=== PATIENT | female | born 2000 | race Hispanic/Latino ===

== ENCOUNTER → 2022-03-03 | Day surgery (SDC) | payer OTHER ==
[~2022-03-03] MED LIST: Acetaminophen 500 MG TAB ONE; Iron Sucrose Complex 500 MG in Sodium Chloride 0.9% 250 ML 250 ML IVPB SCH
== END ==
LOC: CSHSDC 08:11
PROVIDERS: ATTEND Family Medicine
DX: O99.019 Anemia complicating pregnancy, unspecified trimester (principal); D64.9 Anemia, unspecified
CPT/HCPCS: J1756; J7050

== ENCOUNTER 2022-03-28 00:19 | Day surgery (SDC) | payer OTHER ==
[2022-03-28 01:01] VITALS: BMI 32.3
[2022-03-28 01:41] LABS: SARS-CoV-2 NAA Rapid Test Not Detected (NotDetected)
[2022-03-28] MEDS ORDERED: hydrALAZINE 20 MG/ML VIAL SLOW IVP PRN (02:12)
[2022-03-28] MEDS ORDERED: Ondansetron ODT 4 MG TAB PO PRN (02:19)
== END 2022-03-28 03:42 | disposition home or self-care (01) ==
LOC: CSHLD/OP 00:19
PROVIDERS: ATTEND Obstetrics & Gynecology
DX: O21.8 Other vomiting complicating pregnancy (principal); O99.013 Anemia complicating pregnancy, third trimester; D64.9 Anemia, unspecified; Z3A.34 34 weeks gestation of pregnancy; Z79.899 Other long term (current) drug therapy; Z20.822 Contact with and (suspected) exposure to COVID-19
CPT/HCPCS: 99283; Q0162; U0002

== ENCOUNTER 2022-04-17 11:52 | Day surgery (SDC) | payer OTHER ==
[2022-04-17 12:30] VITALS: BMI 32.3
[2022-04-17 14:14] LABS: Bilirubin Neg (Negative); Blood, Urine 10 (Negative); Clarity Clear (Clear); Glucose, Urine (Dipstick) Normal (Negative); Ketone, Urine Negative (Negative); Leukocyte 25 (Negative); Nitrite Negative (Negative); Protein, Urine (Dipstick) 15 mg/dl (Neg-Trace); Specific Gravity, Urine 1.015 (1.005-1.030)
[2022-04-17 14:18] LABS: Urine Culture Reflex No No
[2022-04-17 14:47] LABS: Bacteria/HPF 2+ HPF (None Seen); Transitional Epithelial 0-3 HPF (None Seen)
[2022-04-17] MEDS ORDERED: Nitrofurantoin Monohyd/M-Cryst 100 MG CAP PO SCH (21:00)
== END 2022-04-17 15:15 | disposition home health service (06) ==
LOC: CSHLD/OP 11:52
PROVIDERS: ATTEND Obstetrics & Gynecology
DX: O23.43 Unspecified infection of urinary tract in pregnancy, third trimester (principal); N39.0 Urinary tract infection, site not specified; O47.03 False labor before 37 completed weeks of gestation, third trimester; Z3A.36 36 weeks gestation of pregnancy; Z87.440 Personal history of urinary (tract) infections; Z79.2 Long term (current) use of antibiotics; Z79.899 Other long term (current) drug therapy
CPT/HCPCS: 81001; 99283

== ENCOUNTER 2022-04-24 00:04 | Day surgery (SDC) | payer OTHER ==
[2022-04-24 00:29] VITALS: BMI 33.6
[2022-04-24] MEDS ORDERED: Acetaminophen 500 MG TAB PO SCH (01:30)
== END 2022-04-24 02:22 | disposition home or self-care (01) ==
LOC: CSHER/OP 00:04 → CSHLD/OP 02:22
PROVIDERS: ATTEND Family Medicine
DX: O26.893 Other specified pregnancy related conditions, third trimester (principal); M54.50 Low back pain, unspecified; R10.2 Pelvic and perineal pain; Z3A.37 37 weeks gestation of pregnancy; Z79.899 Other long term (current) drug therapy
CPT/HCPCS: 99283

== ENCOUNTER 2022-04-30 04:06 | Inpatient (IN) | payer OTHER ==
[2022-04-30] MEDS ORDERED: hydrALAZINE 20 MG/ML VIAL SLOW IVP PRN ×3 (06:29→15:55)
[2022-04-30] MEDS ORDERED: Bupivacaine/Epinephrine 0.25% 30 ML VIAL ONE (07:00)
[2022-04-30] MEDS ORDERED: ePHEDrine Sulfate 50 MG/10 ML VIAL ONE (07:00)
[2022-04-30] MEDS ORDERED: Ibuprofen 800 MG TAB PO PRN (07:17)
[2022-04-30] MEDS ORDERED: Docusate 100 MG CAP PO PRN (07:17)
[2022-04-30] MEDS ORDERED: Promethazine HCl 25 MG/ML VIAL IM PRN ×2 (07:17→09:29)
[2022-04-30] MEDS ORDERED: Acetaminophen 500 MG TAB PO PRN (07:17)
[2022-04-30] MEDS ORDERED: Lidocaine 1% (PF) 30 ML VIAL SC PRN (07:17)
[2022-04-30] MEDS ORDERED: Ondansetron PF 4 MG/2 ML Vial IVP PRN ×3 (07:17→15:55)
[2022-04-30] MEDS ORDERED: NS w/ Oxytocin 30 units 500 ML IV SCH ×3 (07:30→15:55)
[2022-04-30] MEDS ORDERED: Butorphanol Tartrate 1 MG/ML VIAL ONE (08:00)
[2022-04-30 08:05] LABS: Hemoglobin 13.2 g/dL (12.0-15.5); Mean Corpuscular HGB CONC 33.6 g/dL (32.0-36.0); Mean Corpuscular Hemoglobin 27.6 pg (27.0-33.0); Mean Platelet Volume 11.3 fl (7.4-10.4); Platelet Count 279 10x3/uL (150-450); RBC Distribution Width 17.8 % (11.5-14.5); Red Blood Cell (RBC) Count 4.79 10x6/uL (3.90-5.03); White Blood Cell (WBC) Count 22.8 10x3/uL (3.5-10.5)
[2022-04-30] MEDS: Lactated Ringer's 1,000 ML IV SCH ×3 (08:07→13:44)
[2022-04-30] MEDS ORDERED: Fentanyl 2 mcg/Bup 0.1% Cadd 100 ML ONE (08:15)
[2022-04-30 08:51] LABS: Syphilis Antibody Nonreactive (Nonreactive); Syphilis Antibody Index 0.02 S/CO (<1.00 Non-Reactive)
[2022-04-30 08:53] LABS: HBSAg Index 0.15 S/CO (0-0.99); Hep B Surf Ag Non-Reactive S/CO (NonReactive)
[2022-04-30] MEDS ORDERED: ePHEDrine Sulfate 50 MG/10 ML VIAL SLOW IVP PRN (09:29)
[2022-04-30] MEDS ORDERED: Naloxone HCl 0.4 mg/ml Vial IVP PRN ×2 (09:29)
[2022-04-30] MEDS ORDERED: Acetaminophen 325 MG TAB PO PRN (09:29)
[2022-04-30] MEDS ORDERED: Moisturizing Cream (Eucerin) 113 GM JAR TOP PRN (09:29)
[2022-04-30] MEDS ORDERED: diphenhydrAMINE 50 MG/ML VIAL IVP PRN (09:29)
[2022-04-30] MEDS ORDERED: Lactated Ringer's 500 ML IV PRN (09:29)
[2022-04-30] MEDS ORDERED: Fentanyl 2 mcg/Bupivacaine 0.1% Cassette 100 ML EPIDURAL SCH (09:30)
[2022-04-30] MEDS ORDERED: Communication Order-Pharmacy FS SCH (09:30)
[2022-04-30] MEDS: Clindamycin/D5W 900 MG in Premix Bag 1 BAG IVPB SCH ×2 (13:49→22:00)
[2022-04-30] MEDS ORDERED: diphenhydrAMINE 25 MG CAP PO PRN (15:55)
[2022-04-30] MEDS ORDERED: Bisacodyl 10 MG SUPP PR PRN (15:55)
[2022-04-30] MEDS ORDERED: Lanolin Ointment 7 GM TUBE TOP PRN (15:55)
[2022-04-30] MEDS ORDERED: Methylergonovine 0.2 MG/ML VIAL IM PRN (15:55)
[2022-04-30] MEDS ORDERED: Misoprostol 200 MCG TAB VAG PRN (15:55)
[2022-04-30] MEDS ORDERED: Preparation H Ointment 28 GM TUBE PR PRN (15:55)
[2022-04-30] MEDS ORDERED: Boostrix 0.5 ML (Tdap) VIAL (>/=7 yrs of age) IM ONE (15:55)
[2022-04-30] MEDS ORDERED: Benzocaine-Menthol 82.5 ML CAN TOP PRN (15:55)
[2022-04-30] MEDS ORDERED: Milk Of Magnesia 30 ML UDCUP PO PRN (15:55)
[2022-04-30] MEDS: Ferrous Sulfate 325 MG TAB PO SCH (18:07)
[2022-04-30 20:38] LABS: SARS-CoV-2 NAA Rapid Test Not Detected (NotDetected)
[2022-04-30] MEDS: Ibuprofen 800 MG TAB PO SCH (22:01)
[2022-04-30] MEDS: Docusate 100 MG CAP PO SCH (22:04)
[2022-05-01] MEDS: Clindamycin/D5W 900 MG in Premix Bag 1 BAG IVPB SCH ×2 (05:01→14:39)
[2022-05-01] MEDS: Ibuprofen 800 MG TAB PO SCH ×3 (05:05→22:03)
[2022-05-01] MEDS ORDERED: Witch Hazel-Glycerin 1 EACH JAR TOP PRN (07:09)
[2022-05-01] MEDS: Ferrous Sulfate 325 MG TAB PO SCH ×2 (08:31→17:44)
[2022-05-01] MEDS: Prenatal Vitamin 1 TAB PO SCH (08:50)
[2022-05-01] MEDS: Milk Of Magnesia 30 ML UDCUP PO SCH (08:51)
[2022-05-01] MEDS: Docusate 100 MG CAP PO SCH ×2 (08:51→22:03)
[2022-05-01 12:27] VITALS: BMI 34.2
[2022-05-02] MEDS: Ibuprofen 800 MG TAB PO SCH ×2 (05:46→13:54)
[2022-05-02] MEDS: Docusate 100 MG CAP PO SCH (08:55)
[2022-05-02] MEDS: Prenatal Vitamin 1 TAB PO SCH (08:55)
[2022-05-02] MEDS: Ferrous Sulfate 325 MG TAB PO SCH (08:56)
[2022-05-02] MEDS: Milk Of Magnesia 30 ML UDCUP PO SCH (08:56)
[2022-05-02 16:58] VITALS: BP 97/56; TEMP 98.1
== END 2022-05-02 18:10 | disposition home or self-care (01) | DRG 768 ==
LOC: CSHLD/OP 04:06 → CSHLD 08:09 → CSHPP 16:22
PROVIDERS: ADMIT Family Medicine; ATTEND Family Medicine
PROC: 10D07Z6 Extraction of Products of Conception, Vacuum, Via Natural or Artificial Opening (ICD-10-PCS; principal; 2022-04-30)
PROC: 0DQR0ZZ Repair Anal Sphincter, Open Approach (ICD-10-PCS; 2022-04-30)
PROC: 0W8NXZZ Division of Female Perineum, External Approach (ICD-10-PCS; 2022-04-30)
DX: O99.42 Diseases of the circulatory system complicating childbirth (principal); Z37.0 Single live birth; O70.20 Third degree perineal laceration during delivery, unspecified; O86.4 Pyrexia of unknown origin following delivery; Z3A.38 38 weeks gestation of pregnancy; Z20.822 Contact with and (suspected) exposure to COVID-19; I95.9 Hypotension, unspecified; O76 Abnormality in fetal heart rate and rhythm complicating labor and delivery
CPT/HCPCS: 36415; 51702; 85027; 86780; 86850; 86900; 86901; 87340; 99285; J0595; J1580; J2405; J3490; J7120; U0002

== ENCOUNTER 2023-03-19 11:18 | Inpatient (IN) | payer OTHER ==
[2023-03-19 12:06] VITALS: BMI 36.9
[2023-03-19 12:48] LABS: Fetal Membranes Rupture RUPTURE DETECTED (No Rupture)
[2023-03-19] MEDS ORDERED: hydrALAZINE 20 MG/ML VIAL SLOW IVP PRN ×2 (12:48→14:31)
[2023-03-19] MEDS ORDERED: Promethazine HCl 25 MG/ML VIAL IM PRN (14:31)
[2023-03-19] MEDS ORDERED: Docusate 100 MG CAP PO PRN (14:31)
[2023-03-19] MEDS ORDERED: Ondansetron PF 4 MG/2 ML Vial IVP PRN (14:31)
[2023-03-19] MEDS ORDERED: Acetaminophen 500 MG TAB PO PRN (14:31)
[2023-03-19 14:59] LABS: Bilirubin Neg (Negative); Blood, Urine Negative (Negative); Clarity Clear (Clear); Glucose, Urine (Dipstick) Normal (Negative); Ketone, Urine Negative (Negative); Leukocyte Negative (Negative); Nitrite Negative (Negative); Protein, Urine (Dipstick) 15 mg/dl (Neg-Trace); Specific Gravity, Urine 1.005 (1.005-1.030); Urobilinogen Normal mg/dL (Less than 2)
[2023-03-19] MEDS ORDERED: Betamet Acet/Betamet Na Ph 30 MG/5 ML VIAL ONE (15:06)
[2023-03-19 15:15] LABS: Bacteria/HPF None Seen HPF (None Seen); Mucous/LPF Rare LPF (<2+); RBC/HPF None Seen HPF (0-3); Squamous Epithelial 0-3 HPF (0-3); WBC/HPF None Seen HPF (0-3)
[2023-03-19] MEDS ORDERED: Betamet Acet/Betamet Na Ph 30 MG/5 ML VIAL IM SCH (15:20)
[2023-03-19] MEDS ORDERED: Lidocaine 1% (PF) 30 ML VIAL SC PRN (15:23)
[2023-03-19] MEDS ORDERED: Penicillin G Potassium 5 MILL.UNITS in Sodium Chloride 0.9% 100 ML IVPB SCH (15:30)
[2023-03-19] MEDS ORDERED: Misoprostol 100 MCG TAB PO SCH (16:00)
[2023-03-19 16:08] LABS: Hematocrit 32.5 % (34.9-44.5); Hemoglobin 10.6 g/dL (12.0-15.5); Mean Corpuscular HGB CONC 32.6 g/dL (32.0-36.0); Mean Corpuscular Volume 79.7 fl (81.6-98.3); Mean Platelet Volume 10.6 fl (7.4-10.4); Platelet Count 261 10x3/uL (150-450); RBC Distribution Width 14.2 % (11.5-14.5); Red Blood Cell (RBC) Count 4.08 10x6/uL (3.90-5.03); White Blood Cell (WBC) Count 10.5 10x3/uL (3.5-10.5)
[2023-03-19 16:41] LABS: Syphilis Antibody Nonreactive (Nonreactive); Syphilis Antibody Index 0.02 S/CO (<1.00 Non-Reactive)
[2023-03-19 16:42] LABS: HBSAg Index 0.18 S/CO (0-0.99); Hep B Surf Ag - L&D Non-Reactive S/CO (NonReactive)
[2023-03-19] MEDS: Misoprostol 100 MCG TAB PO SCH (18:34)
[2023-03-19] MEDS: Penicillin G 2.5 MILL.units 2.5 MILL.UNITS in Premix Bag 1 BAG IVPB SCH (20:17)
[2023-03-19] MEDS ORDERED: Misoprostol 100 MCG TAB VAG SCH (22:45)
[2023-03-20 02:44] LABS: Chlamydia by PCR, Vaginal Swab Not Detected (NotDetected); GC by PCR, Vaginal Swab Not Detected (NotDetected); Tric.vaginalis PCR,Vaginal Sw Not Detected (NotDetected)
[2023-03-20] MEDS ORDERED: fentaNYL/Ropivacaine Epidural 100 ML ONE (04:22)
[2023-03-20] MEDS: Penicillin G 2.5 MILL.units 2.5 MILL.UNITS in Premix Bag 1 BAG IVPB SCH (04:47)
[2023-03-20] MEDS ORDERED: CEFAZOLIN 2 GM VIAL ONE (05:23)
[2023-03-20] MEDS ORDERED: Azithromycin 500 MG VIAL ONE (05:23)
[2023-03-20] MEDS ORDERED: Bicitra 30 ML UDCUP PO PRN (05:35)
[2023-03-20] MEDS ORDERED: Famotidine/PF 20 mg/2ml Vial SLOW IVP PRN (05:35)
[2023-03-20] MEDS ORDERED: Azithromycin 500 MG in Sodium Chloride 0.9% 250 ML 250 ML IVPB SCH (05:45)
[2023-03-20] MEDS ORDERED: CEFAZOLIN 2 GM in Sodium Chloride 0.9% 100 ML IVPB SCH (05:45)
[2023-03-20] MEDS ORDERED: Oxytocin 10 UNITS/ML VIAL ONE ×2 (05:47→06:17)
[2023-03-20] MEDS ORDERED: Famotidine/PF 20 mg/2ml Vial ONE (05:47)
[2023-03-20] MEDS ORDERED: Dexamethasone 4 mg/ml Vial ONE (05:47)
[2023-03-20] MEDS ORDERED: Ondansetron PF 4 MG/2 ML Vial ONE (05:47)
[2023-03-20] MEDS ORDERED: Morphine PF 10 MG/10 ML VIAL ONE (05:57)
[2023-03-20] MEDS ORDERED: Promethazine HCl 25 MG/ML VIAL ONE (06:08)
[2023-03-20] MEDS ORDERED: Methylergonovine 0.2 MG/ML VIAL ONE (06:10)
[2023-03-20] MEDS ORDERED: Fentanyl 50 MCG/1 ML VIAL SLOW IVP PRN (06:24)
[2023-03-20] MEDS ORDERED: Promethazine HCl 25 MG SUPP PR PRN (06:24)
[2023-03-20] MEDS ORDERED: diphenhydrAMINE 50 MG/ML VIAL IVP PRN (06:24)
[2023-03-20] MEDS ORDERED: Promethazine HCl 25 MG/ML VIAL IM PRN (06:24)
[2023-03-20] MEDS ORDERED: Ondansetron PF 4 MG/2 ML Vial IVP PRN ×2 (06:24→09:09)
[2023-03-20] MEDS ORDERED: Naloxone HCl 0.4 mg/ml Vial IVP PRN ×2 (06:24)
[2023-03-20] MEDS ORDERED: Ondansetron HCl/PF 4 MG/2 ML Vial IVP PRN (06:24)
[2023-03-20] MEDS ORDERED: Moisturizing Cream (Eucerin) 113 GM JAR TOP PRN (06:24)
[2023-03-20] MEDS ORDERED: Meperidine HCl/PF 25 MG/ML VIAL SLOW IVP PRN (06:24)
[2023-03-20] MEDS ORDERED: fentaNYL 50 mcg/mL 1 mL Vial ONE (06:28)
[2023-03-20] MEDS ORDERED: Ketorolac Tromethamine 30 MG/ML VIAL IVP SCH (06:30)
[2023-03-20] MEDS ORDERED: NO NARCS FOR 12 HOURS FS PRN (06:30)
[2023-03-20] MEDS: Ketorolac Tromethamine 30 MG/ML VIAL IVP PRN ×2 (07:16→13:04)
[2023-03-20] MEDS ORDERED: Misoprostol 200 MCG TAB PR PRN (09:09)
[2023-03-20] MEDS ORDERED: Simethicone Chewable 80 MG TAB PO PRN (09:09)
[2023-03-20] MEDS ORDERED: Lanolin Ointment 7 GM TUBE TOP PRN (09:09)
[2023-03-20] MEDS ORDERED: Methylergonovine 0.2 MG/ML VIAL IM PRN (09:09)
[2023-03-20] MEDS ORDERED: Oxytocin 30 units/NS 500 ML 500 ML IV SCH (09:09)
[2023-03-20] MEDS ORDERED: hydrALAZINE 20 MG/ML VIAL SLOW IVP PRN (09:09)
[2023-03-20] MEDS ORDERED: diphenhydrAMINE 25 MG CAP PO PRN (09:09)
[2023-03-20] MEDS ORDERED: Prenatal Vitamin 1 TAB PO SCH (09:45)
[2023-03-20] MEDS ORDERED: Ferrous Sulfate 325 MG TAB PO SCH (09:45)
[2023-03-20] MEDS ORDERED: Docusate 100 MG CAP PO SCH (09:45)
[2023-03-20] MEDS: Ibuprofen 800 MG TAB PO SCH ×2 (13:05→19:24)
[2023-03-20 20:14] LABS: Group B Streptococcus by PCR Not Detected (NotDetected)
[2023-03-20] MEDS: Ferrous Sulfate 325 MG TAB PO SCH (21:00)
[2023-03-21 04:15] LABS: Hematocrit 21.7 % (34.9-44.5); Hemoglobin 6.9 g/dL (12.0-15.5); Mean Corpuscular HGB CONC 31.8 g/dL (32.0-36.0); Mean Corpuscular Hemoglobin 25.8 pg (27.0-33.0); Mean Corpuscular Volume 81.3 fl (81.6-98.3); Mean Platelet Volume 10.8 fl (7.4-10.4); Platelet Count 241 10x3/uL (150-450); RBC Distribution Width 14.5 % (11.5-14.5); Red Blood Cell (RBC) Count 2.67 10x6/uL (3.90-5.03); White Blood Cell (WBC) Count 13.1 10x3/uL (3.5-10.5)
[2023-03-21] MEDS: Naloxone HCl 0.4 mg/ml Vial IV PRN ×2 (05:20→05:35)
[2023-03-21] MEDS: HYDROcodone/Acetaminophen 5/325 mg Tablet PO PRN ×3 (05:29→21:00)
[2023-03-21] MEDS: Ibuprofen 800 MG TAB PO SCH ×4 (05:30→20:58)
[2023-03-21] MEDS: Docusate 100 MG CAP PO SCH ×3 (06:06→20:58)
[2023-03-21] MEDS: Ferrous Sulfate 325 MG TAB PO SCH ×2 (08:27→20:58)
[2023-03-21] MEDS: Prenatal Vitamin 1 TAB PO SCH (08:27)
[2023-03-21 15:09] LABS: Hematocrit 26.9 % (34.9-44.5); Hemoglobin 8.6 g/dL (12.0-15.5)
[2023-03-22] MEDS: HYDROcodone/Acetaminophen 5/325 mg Tablet PO PRN ×5 (00:59→21:03)
[2023-03-22 04:10] LABS: Hematocrit 25.1 % (34.9-44.5); Hemoglobin 8.1 g/dL (12.0-15.5); Mean Corpuscular HGB CONC 32.3 g/dL (32.0-36.0); Mean Corpuscular Volume 80.7 fl (81.6-98.3); Platelet Count 239 10x3/uL (150-450); RBC Distribution Width 14.6 % (11.5-14.5); Red Blood Cell (RBC) Count 3.11 10x6/uL (3.90-5.03); White Blood Cell (WBC) Count 14.7 10x3/uL (3.5-10.5)
[2023-03-22] MEDS: Ibuprofen 800 MG TAB PO SCH ×3 (05:09→21:04)
[2023-03-22] MEDS: Prenatal Vitamin 1 TAB PO SCH (09:27)
[2023-03-22] MEDS: Docusate 100 MG CAP PO SCH ×2 (09:27→21:04)
[2023-03-22] MEDS: Ferrous Sulfate 325 MG TAB PO SCH ×2 (09:40→21:03)
[2023-03-23] MEDS: HYDROcodone/Acetaminophen 5/325 mg Tablet PO PRN ×2 (05:25→11:45)
[2023-03-23] MEDS: Ibuprofen 800 MG TAB PO SCH (05:27)
[2023-03-23] MEDS: Penicillin G 2.5 MILL.units 2.5 MILL.UNITS in Premix Bag 1 BAG IVPB SCH ×2 (07:36→07:37)
[2023-03-23] MEDS: Misoprostol 100 MCG TAB PO SCH ×2 (07:36→07:38)
[2023-03-23 08:00] VITALS: BP 103/67; TEMP 98
[2023-03-23 08:01] LABS: Hematocrit 26.7 % (34.9-44.5); Hemoglobin 8.4 g/dL (12.0-15.5)
[2023-03-23] MEDS: Docusate 100 MG CAP PO SCH (09:32)
[2023-03-23] MEDS: Ferrous Sulfate 325 MG TAB PO SCH (09:32)
[2023-03-23] MEDS: Prenatal Vitamin 1 TAB PO SCH (09:32)
== END 2023-03-23 14:00 | disposition home or self-care (01) | DRG 786 ==
LOC: CSHLD/OP 11:18 → CSHLD 15:26 → CSHPP 03-20 09:21
PROVIDERS: ADMIT Family Medicine; ATTEND Family Medicine
PROC: 10D00Z1 Extraction of Products of Conception, Low, Open Approach (ICD-10-PCS; principal; 2023-03-20)
PROC: 3E0P7VZ Introduction of Hormone into Female Reproductive, Via Natural or Artificial Opening (ICD-10-PCS; 2023-03-20)
PROC: 30233N1 Transfusion of Nonautologous Red Blood Cells into Peripheral Vein, Percutaneous Approach (ICD-10-PCS; 2023-03-21)
PROC: 10H07YZ Insertion of Other Device into Products of Conception, Via Natural or Artificial Opening (ICD-10-PCS; 2023-03-21)
DX: O42.013 Preterm premature rupture of membranes, onset of labor within 24 hours of rupture, third trimester (principal); O60.14X0 Preterm labor third trimester with preterm delivery third trimester, not applicable or unspecified; O99.214 Obesity complicating childbirth; O76 Abnormality in fetal heart rate and rhythm complicating labor and delivery; O99.02 Anemia complicating childbirth; Z3A.34 34 weeks gestation of pregnancy; Z37.0 Single live birth; E66.9 Obesity, unspecified; D64.9 Anemia, unspecified; Z79.899 Other long term (current) drug therapy
CPT/HCPCS: 36415; 36430; 51702; 76816; 81001; 84112; 85014; 85018; 85027; 86780; 86850; 86900; 86901; 87340; 87480; 87491; 87510; 87591; 87653; 87660; 87661; 99285; J0702; J1100; J1200; J1885; J2210; J2274; J2310; J2405; J2540; J2550; J2590; J3010; J3490; P9016; S0028

== ENCOUNTER 2025-02-17 08:28 | Emergency (ER) | payer OTHER, SELFPAY ==
[2025-02-17 09:12] LABS: #Basophils Less than 0.03 10x3/uL (0.0-0.2); #Eosinophils Less than 0.03 10x3/uL (0.0-0.5); #Monocytes 0.31 10x3/uL (0.0-1.1); #Neutrophils 5.84 10x3/uL (1.5-8.4); %Basophils 0.2 % (0.0-2.0); %Eosinophils 0.0 % (0.0-6.0); %Lymphocytes 6.5 % (18.0-47.0); %Monocytes 4.7 % (0.0-10.0); %Neutrophils 88.3 % (40.0-75.0); Hematocrit 35.4 % (34.9-44.5); Hemoglobin 10.8 g/dL (12.0-15.5); Mean Corpuscular Hemoglobin 23.2 pg (27.0-33.0); Mean Corpuscular Volume 76.1 fL (81.6-98.3); Platelet Count 268 10x3/uL (150-450); Red Blood Cell (RBC) Count 4.65 10x6/uL (3.90-5.03); White Blood Cell (WBC) Count 6.61 10x3/uL (3.5-10.5)
[2025-02-17 09:31] LABS: ALT (SGPT) 15 U/L (Less than 34); AST (SGOT) 27 U/L (11-34); Albumin 4.0 g/dL (3.1-4.5); Alkaline Phosphatase 85 U/L (40-110); Anion Gap 12 mmol/L (10-20); BUN (Urea Nitrogen) 12 mg/dL (7.0-18.7); Bilirubin, Total 0.3 mg/dL (0.3-1.2); Calc. Creatinine Clearance 0 mL/min (70-130); Calcium 8.3 mg/dL (7.8-10.44); Carbon Dioxide 21 mmol/L (22-29); Chloride 108 mmol/L (98-107); Globulin 3.4 g/dL (2.4-3.5); Glucose 172 mg/dL (70-105); Potassium 3.9 mmol/L (3.5-5.1); Sodium 137 mmol/L (136-145)
[2025-02-17] MEDS ORDERED: Ondansetron PF 4 MG/2 ML Vial ONE (09:52)
[2025-02-17 10:12] LABS: Glucose, Urine (Dipstick) Normal (Negative); Leukocyte 25 (Negative); Protein, Urine (Dipstick) 30 mg/dl (Neg-Trace); Specific Gravity, Urine 1.020 (1.005-1.030)
[2025-02-17 10:13] LABS: Lipase 32 U/L (8-78); Magnesium 1.8 mg/dL (1.6-2.6)
[2025-02-17 10:16] LABS: Pregnancy Test - Urine (BHCG) Negative (Negative); Pregu Control Background? CLEAR/WHITE (CLR/WHITE); Pregu Control Bar Appear? YES (CONTROL BAR)
[2025-02-17 11:04] LABS: CAUTI Indications for Culture Pelvic or flank pain; RBC/HPF 0-3 HPF (0-3); WBC/HPF 0-3 HPF (0-3)
[2025-02-17 11:05] LABS: Bacteria/HPF 1+ HPF (None Seen)
[2025-02-17 11:09] LABS: Other Microscopic Description 1+ SULFA DRUG CRYSTA
[2025-02-17 11:10] LABS: Urine Culture Reflex No No
== END 2025-02-17 12:10 | disposition home or self-care (01) ==
LOC: CSHERS 08:28
DX: K52.9 Noninfective gastroenteritis and colitis, unspecified (principal); F17.210 Nicotine dependence, cigarettes, uncomplicated
CPT/HCPCS: 80053; 81001; 81025; 83605; 83690; 83735; 85025; 96361; 96374; J2405